=== PATIENT | male | born 1985 | race African-American/Black ===

== ENCOUNTER 2017-02-13 04:34 | Emergency (ER) | payer MEDICAID, SELFPAY ==
[2017-02-13] MEDS ORDERED: Ketorolac Tromethamine 30 MG/ML VIAL ONE (05:07)
== END 2017-02-13 06:13 | disposition home or self-care (01) ==
LOC: ERS 04:34
DX: K08.89 Other specified disorders of teeth and supporting structures (principal); I10 Essential (primary) hypertension; F31.9 Bipolar disorder, unspecified; F17.210 Nicotine dependence, cigarettes, uncomplicated; Z71.6 Tobacco abuse counseling
CPT/HCPCS: 96372; 99406; J1885

== ENCOUNTER 2017-08-19 18:18 | Emergency (ER) | payer SELFPAY ==
[2017-08-19] MEDS ORDERED: Adacel (T-DAP) 0.5 ML VIAL ONE (18:53)
[2017-08-19] MEDS ORDERED: HYDROcodone/Acetaminophen 10/325 mg Tablet ONE (19:16)
[2017-08-19] MEDS ORDERED: Lidocaine 1% PF 5 ML VIAL ONE (19:20)
--- NOTE | 2017-08-19 19:36 | RAD ---
THREE VIEWS LEFT HAND 08/19/17 COMPARISON: None. HISTORY: Injury to the palm while jumping over a chain link fence, trauma, pain. FINDINGS: On the frontal examination, there is subcutaneous gas projecting between the head of the second and t hird metacarpals suggesting laceration. No radiopaque foreign body, fracture, or evidence of dislocat ion. IMPRESSION: No acute osseous abnormality seen. POS: ANUPAM
[2017-08-19] MEDS ORDERED: Bacitracin Zinc 1 Packet ONE (19:44)
== END 2017-08-19 19:56 | disposition home or self-care (01) ==
LOC: ERS 18:18
DX: S61.412A Laceration without foreign body of left hand, initial encounter (principal); I10 Essential (primary) hypertension; F31.9 Bipolar disorder, unspecified; F17.210 Nicotine dependence, cigarettes, uncomplicated; Z23 Encounter for immunization; W25.XXXA Contact with sharp glass, initial encounter
CPT/HCPCS: 12001; 90471; 90715; J2001

== ENCOUNTER 2017-09-03 11:53 | Emergency (ER) | payer SELFPAY | END 2017-09-03 12:48 | disposition home or self-care (01) | LOC: ERS 11:53 | DX: S61.412D Laceration without foreign body of left hand, subsequent encounter (principal); F31.9 Bipolar disorder, unspecified; J45.909 Unspecified asthma, uncomplicated; F17.210 Nicotine dependence, cigarettes, uncomplicated; Z71.6 Tobacco abuse counseling | CPT/HCPCS: 99406 ==

== ENCOUNTER 2017-10-03 10:31 | Emergency (ER) | payer SELFPAY ==
[2017-10-03] MEDS ORDERED: Azithromycin 250 MG TAB ONE (11:34)
[2017-10-03 12:19] LABS: Bilirubin Negative (Negative); Blood, Urine Negative (Negative); Clarity CLOUDY (Clear); Glucose, Urine (Dipstick) Negative (Negative); Leukocyte Negative (Negative); Nitrite Negative (Negative); Protein, Urine (Dipstick) Trace mg/dL (Neg-Trace); Specific Gravity, Urine 1.026 (1.002-1.036); Urobilinogen 0.2 mg/dL (0.2-1.0)
[2017-10-05 18:56] LABS: Chlamydia by PCR Not Detected (NotDetected); GC by PCR Not Detected (NotDetected)
== END 2017-10-03 12:47 | disposition home or self-care (01) ==
LOC: ERS 10:31
DX: N34.1 Nonspecific urethritis (principal); I10 Essential (primary) hypertension; J45.909 Unspecified asthma, uncomplicated; F31.9 Bipolar disorder, unspecified; F17.210 Nicotine dependence, cigarettes, uncomplicated
CPT/HCPCS: 81003; 87491; 87591; 99283

== ENCOUNTER 2017-10-14 09:06 | Emergency (ER) | payer SELFPAY ==
[2017-10-14 09:36] LABS: Bilirubin Negative (Negative); Blood, Urine Negative (Negative); Clarity CLEAR (Clear); Glucose, Urine (Dipstick) Negative (Negative); Leukocyte Negative (Negative); Nitrite Negative (Negative); Protein, Urine (Dipstick) Negative (Neg-Trace); Specific Gravity, Urine 1.022 (1.002-1.036)
[2017-10-14 11:22] LABS: Hemoglobin 15.9 g/dL (14.0-18.0); Red Blood Cell (RBC) Count 5.27 mill/uL (4.70-6.10); White Blood Cell (WBC) Count 9.8 thou/uL (4.8-10.8)
[2017-10-14 11:23] LABS: #Lymphocytes 3.8 thou/uL (1.20-3.40); #Monocytes 0.8 thou/uL (0.11-0.59); #Neutrophils 4.8 thou/uL (1.40-6.50); %Basophils 1.9 % (0.0-1.0); %Eosinophils 1.7 % (0.0-10.0); %Lymphocytes 39.2 % (21.0-51.0); %Monocytes 7.9 % (0.0-10.0); %Neutrophils 49.3 % (42.0-75.0); Mean Corpuscular HGB CONC 33.1 g/dL (32.0-36.0); Mean Corpuscular Hemoglobin 30.3 pg (27.0-31.0); Mean Corpuscular Volume 91.6 fL (78.0-98.0); Mean Platelet Volume 7.5 fL (7.4-10.4); Platelet Count 239 thou/uL (130-400); RBC Distribution Width 12.9 % (11.5-14.5)
[2017-10-14 11:25] LABS: #Basophils 0.2 thou/uL (0.0-0.2); #Eosinphils 0.2 thou/uL (0.0-0.7)
[2017-10-14 12:31] LABS: ALT (SGPT) 19 U/L (8-55); AST (SGOT) 36 U/L (5-34); Albumin 3.8 g/dL (3.5-5.0); Alkaline Phosphatase 97 U/L (40-150); Anion Gap 14 mmol/L (10-20); BUN (Urea Nitrogen) 11 mg/dL (8.9-20.6); Bilirubin, Total 0.2 mg/dL (0.2-1.2); Calc. Creatinine Clearance 0 mL/min (70-130); Carbon Dioxide 19 mmol/L (22-29); Chloride 108 mmol/L (98-107); Estimated GFR-MDRD Greater than 90; Glucose 81 mg/dL (70-105); Lipase 312 U/L (8-78); Potassium 4.5 mmol/L (3.5-5.1); Protein, Total 6.8 g/dL (6.0-8.3); Sodium 136 mmol/L (136-145)
--- NOTE | 2017-10-14 12:50 | CT ---
CT ABDOMEN NONCONTRAST CT PELVIS NONCONTRAST: (urolithiasis protocol) DATE: 10/14/2017 TIME: 12:16 p.m. HISTORY: A 32-year-old male with left flank pain and hematuria. COMPARISON: None. TECHNIQUE: IV injection of iodinated contrast media: none Oral contrast media: none FINDINGS: Other than for urolithiasis, the lack of IV and oral contrast limits the evaluation. There is a punctate, 1 or 2 mm calculus at the lower pole of the left kidney. There are no other bhavya culi in the bilateral kidneys, ureters, or urinary bladder. There is no hydroureteronephrosis. With in the limitations of a noncontrast scan, no abnormality is identified involving the appendix, the ab dominal aorta, the right kidney, the adrenals, the pancreas, the liver, or the spleen. No small sulma l dilation. No ascites or pneumoperitoneum. The lung bases are clear. No major osseous abnormality . IMPRESSION: 1. Minimal nephrolithiasis, consisting of a single punctate 1 or 2 mm left renal calculus. 2. Otherwise negative. 3. No obstructive uropathy. JUAN CARLOS Albarran POS: RAMOS
[2017-10-14] MEDS ORDERED: Ketorolac Tromethamine 60 MG/2 ML VIAL ONE (13:27)
== END 2017-10-14 15:32 | disposition home or self-care (01) ==
LOC: ERS 09:06
DX: K85.90 Acute pancreatitis without necrosis or infection, unspecified (principal); I10 Essential (primary) hypertension; J45.909 Unspecified asthma, uncomplicated; F31.9 Bipolar disorder, unspecified; F17.210 Nicotine dependence, cigarettes, uncomplicated; Z71.6 Tobacco abuse counseling
CPT/HCPCS: 36415; 74176; 80053; 81003; 83690; 85025; 96372; 99406; J1885

== ENCOUNTER 2017-10-31 18:52 | Emergency (ER) | payer SELFPAY ==
[2017-10-31] MEDS ORDERED: Ketorolac Tromethamine 60 MG/2 ML VIAL ONE (20:19)
[2017-10-31] MEDS ORDERED: Clindamycin 150 MG CAP PO SCH (20:30)
== END 2017-10-31 20:35 | disposition home or self-care (01) ==
LOC: ERS 18:52
DX: S40.862A Insect bite (nonvenomous) of left upper arm, initial encounter (principal); L03.113 Cellulitis of right upper limb; F31.9 Bipolar disorder, unspecified; I10 Essential (primary) hypertension; F17.210 Nicotine dependence, cigarettes, uncomplicated; J45.909 Unspecified asthma, uncomplicated; W57.XXXA Bitten or stung by nonvenomous insect and other nonvenomous arthropods, initial encounter
CPT/HCPCS: 96372; J1885

== ENCOUNTER 2018-01-05 09:44 | Emergency (ER) | payer SELFPAY | END 2018-01-05 10:33 | disposition home or self-care (01) | LOC: ERS 09:44 | DX: J06.9 Acute upper respiratory infection, unspecified (principal); I10 Essential (primary) hypertension; J45.909 Unspecified asthma, uncomplicated; F31.9 Bipolar disorder, unspecified; F17.210 Nicotine dependence, cigarettes, uncomplicated; Z71.6 Tobacco abuse counseling | CPT/HCPCS: 99406 ==

== ENCOUNTER 2018-09-23 18:57 | Emergency (ER) | payer SELFPAY ==
[2018-09-23] MEDS ORDERED: Ketorolac Tromethamine 30 MG/ML VIAL ONE (19:26)
== END 2018-09-23 19:30 | disposition home or self-care (01) ==
LOC: ERS 18:57
DX: K04.7 Periapical abscess without sinus (principal); J45.909 Unspecified asthma, uncomplicated; F31.9 Bipolar disorder, unspecified; F17.210 Nicotine dependence, cigarettes, uncomplicated; I10 Essential (primary) hypertension
CPT/HCPCS: 96372; 99282; J1885

== ENCOUNTER 2018-11-10 13:53 | Emergency (ER) | payer SELFPAY ==
--- NOTE | 2018-11-10 14:21 | RAD ---
EXAM: XR Hand Lt 3 View STANDARD PROVIDED CLINICAL HISTORY: Pain COMPARISON: 08/19/2017 FINDINGS: Comminuted, apex dorsally angulated fracture involves the fifth metacarpal neck. No additional fractu re is evident. Alignment appears otherwise anatomic. Joint spaces appear preserved. IMPRESSION: Comminuted, apex dorsally angulated fifth metacarpal neck fracture.
[2018-11-10] MEDS ORDERED: Ketorolac Tromethamine 30 MG/ML VIAL ONE (15:11)
== END 2018-11-10 15:47 | disposition home or self-care (01) ==
LOC: ERS 13:53
DX: S62.337A Displaced fracture of neck of fifth metacarpal bone, left hand, initial encounter for closed fracture (principal); I10 Essential (primary) hypertension; J45.909 Unspecified asthma, uncomplicated; F31.9 Bipolar disorder, unspecified; F17.210 Nicotine dependence, cigarettes, uncomplicated; W22.8XXA Striking against or struck by other objects, initial encounter
CPT/HCPCS: 29125; 96372; J1885

== ENCOUNTER 2018-11-11 13:21 | Outpatient (CLI) | payer SELFPAY ==
[2018-11-11 16:59] LABS: #Basophils 0.1 thou/uL (0.0-0.2); #Eosinphils 0.2 thou/uL (0.0-0.7); #Lymphocytes 4.4 thou/uL (1.20-3.40); #Monocytes 0.9 thou/uL (0.11-0.59); #Neutrophils 8.4 thou/uL (1.40-6.50); %Basophils 0.6 % (0.0-1.0); %Eosinophils 1.1 % (0.0-10.0); %Lymphocytes 31.5 % (21.0-51.0); %Monocytes 6.4 % (0.0-10.0); %Neutrophils 60.4 % (42.0-75.0); Mean Corpuscular HGB CONC 33.5 g/dL (32.0-36.0); Mean Corpuscular Hemoglobin 30.3 pg (27.0-31.0); Mean Corpuscular Volume 90.4 fL (78.0-98.0); Mean Platelet Volume 8.1 fL (7.4-10.4); Platelet Count 235 thou/uL (130-400); RBC Distribution Width 12.9 % (11.5-14.5); Red Blood Cell (RBC) Count 5.61 mill/uL (4.70-6.10); White Blood Cell (WBC) Count 13.9 thou/uL (4.8-10.8)
== END 2018-11-11 13:22 | disposition home or self-care (01) ==
LOC: LABBT 13:21
PROVIDERS: ATTEND Orthopaedic Surgery Hand Surgery
DX: Z01.812 Encounter for preprocedural laboratory examination (principal); S62.307A Unspecified fracture of fifth metacarpal bone, left hand, initial encounter for closed fracture
CPT/HCPCS: 85025

== ENCOUNTER 2018-11-13 13:04 | Emergency (ER) | payer OTHER, SELFPAY | END 2018-11-13 14:03 | disposition home or self-care (01) | LOC: ERS 13:04 | DX: S92.352A Displaced fracture of fifth metatarsal bone, left foot, initial encounter for closed fracture (principal); I10 Essential (primary) hypertension; J45.909 Unspecified asthma, uncomplicated; F31.9 Bipolar disorder, unspecified; F17.210 Nicotine dependence, cigarettes, uncomplicated; Z79.899 Other long term (current) drug therapy; X58.XXXA Exposure to other specified factors, initial encounter | CPT/HCPCS: 99283 ==